=== PATIENT | female | born 1985 | race Caucasian/White ===

== ENCOUNTER 2016-11-10 20:26 | Emergency (ER) | payer OTHER ==
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
[2016-11-10] MEDS ORDERED: HYDROmorphone 1 mg/mL 1mL Syr IM STA (22:16)
[2016-11-10] MEDS ORDERED: HYDROmorphone 1 mg/mL 1mL Syr IVP STA (22:16)
[2016-11-10] MEDS ORDERED: HYDROmorphone 1 mg/mL 1mL Syr ONE (22:21)
--- NOTE | 2016-11-11 10:10 | Diagnostic Imaging Report ---
CT cervical spine without IV contrast HISTORY: Trauma COMPARISON: None Technique: Axial images were obtained from the skull base to the upper thoracic spine without IV contrast. Multiplanar reconstructions were made. Total DLP: 442, [id number] FINDINGS: Images of the spine cervical spine obtained without contrast demonstrate no evidence of a fracture or subluxation. There is slight asymmetry between the dens and the lateral masses of C1. The disc spaces are preserved. Minimal degenerative changes are noted. No prevertebral soft tissue swelling. No focal soft tissue abnormalities. The lung apices are clear. IMPRESSION: No evidence of an acute fracture or subluxation. Slight asymmetry between the dens and lateral masses of C1. Findings are likely related to patient positioning.
--- NOTE | 2016-11-11 10:16 | Diagnostic Imaging Report ---
CT thoracic spine without IV contrast HISTORY: Trauma COMPARISON: Cervical and lumbar spine CT the same day Technique: Axial images were obtained from the lower cervical spine to the upper lumbar spine without IV contrast. Reconstructions were made. total DLP: 1345 CTD I 41 Findings: Images of the thoracic spine obtained without contrast demonstrate no evidence of an acute fracture or subluxation. Minimal degenerative changes are noted. The alignment of the thoracic spine is anatomic. Hypoventilatory atelectatic changes at lung bases are noted. 5 mm calcified granuloma is seen along the left major fissure. IMPRESSION: No evidence of an acute fracture or subluxation. Minimal degenerative changes.
--- NOTE | 2016-11-11 10:32 | Diagnostic Imaging Report ---
CT lumbar spine without IV contrast HISTORY: Trauma COMPARISON: Thoracic spine CT the same day Technique: Axial images were obtained from the lower thoracic spine to the upper sacrum without IV contrast. Reconstructions were made. total DLP: [id number], [id number] Images of the lumbar spine obtained without contrast demonstrate no evidence of an acute fracture or subluxation. Mild early degenerative changes are noted. Mild degenerative changes of SI joints are also noted. The visualized retroperitoneum is grossly unremarkable. IMPRESSION: No evidence of an acute fracture or subluxation Mild degenerative changes.
== END 2016-11-10 23:42 | disposition home or self-care (01) ==
LOC: ER 20:26
DX: S16.1XXA Strain of muscle, fascia and tendon at neck level, initial encounter (principal); S29.012A Strain of muscle and tendon of back wall of thorax, initial encounter; W01.0XXA Fall on same level from slipping, tripping and stumbling without subsequent striking against object, initial encounter; Y93.89 Activity, other specified; Y92.89 Other specified places as the place of occurrence of the external cause; Y99.8 Other external cause status
CPT/HCPCS: 99285; 96372 ×3; 72125; 72128; 72131; 81025; J1885; J2405; J1170